=== PATIENT | male | born 1970 | race African-American/Black ===

== ENCOUNTER 2020-08-16 16:30 | Inpatient (IN) ==
[2020-08-16] MEDS ORDERED: MORPHINE 4 MG/1 ML VIAL IV STA ×2 (17:11→19:26)
[2020-08-16] MEDS ORDERED: ALBUTEROL 2.5 MG/3 ML NEB RESP TX STA (17:11)
[2020-08-16] MEDS ORDERED: hydrALAZINE 20 MG/1 ML VIAL IV STA (17:11)
[2020-08-16 18:29] LABS: Basophils # 0.1 10*3/uL (0.0-0.2); Basophils % 0.5 % (0.0-0.8); Eosinophils % 0.1 % (0.00-10.9); Hematocrit 34.6 VOL% (42.0-52.0); Hemoglobin 11.1 GM/DL (14.0-18.0); Immature Granulocytes % 0.7 %; Immature Granulocytes Absolute 0.09 #; Lymphocytes # 2.3 10*3/uL (1.4-4.0); Lymphocytes % 16.7 % (21.2-54.2); Mean Corpuscular HGB Conc 32.1 GM/DL (32-36); Mean Corpuscular Volume 94.5 FL (87-102); Mean Platelet Volume 11.5 FL (9.6-12.0); Monocytes % 8.1 % (1.7-12.7); NRBC # 0.02 10*3/uL; Neutrophils % 73.9 % (38.7-73.9); Platelet Count 251 T/CUMM (130-400); Red Blood Count 3.66 MC/CUMM (3.8-5.5); Red Cell Distribution Width 16.1 % (9.3-17.3); White Blood Count 13.6 T/CUMM (4-12)
[2020-08-16 18:50] LABS: Albumin 3.7 G/DL (3.4-5.0); Bilirubin,Total 0.5 MG/DL (0.2-1.0); Calcium 8.3 MG/DL (8.5-10.1); Osmolality,Calculated 297.8 MOS/KG (273-304); Total Protein 8.3 G/DL (6.4-8.3)
[2020-08-16] MEDS ORDERED: DEXTROSE 50% 25 GM/50 ML VIAL IV PRN ×2 (19:31)
[2020-08-16] MEDS ORDERED: hydrALAZINE 20 MG/1 ML VIAL IV PRN (19:31)
[2020-08-16] MEDS ORDERED: GLUCAGON 1 MG VIAL IM PRN ×2 (19:31)
[2020-08-16] MEDS ORDERED: ACETAMINOPHEN 325 MG TABLET PO PRN (19:31)
[2020-08-16] MEDS ORDERED: BENZONATATE 100 MG CAPSULE PO SCH (21:00)
[2020-08-16] MEDS ORDERED: LEVOFLOXACIN INJ 750 MG in PREMIX 1 EACH IV ONE (22:00)
[2020-08-16] MEDS: QUEtiapine 25 MG TABLET PO SCH (22:02)
[2020-08-16] MEDS: METOPROLOL TARTRATE 100 MG TABLET PO SCH (22:03)
[2020-08-16] MEDS: guaiFENesin/DM ER 600-30 MG TABLET PO SCH (22:03)
[2020-08-16] MEDS: APIXABAN 2.5 MG TABLET PO SCH (22:04)
[2020-08-17] MEDS: INSULIN LISPRO 100 UNIT/ML SUBCUT SCH ×5 (00:11→22:51)
[2020-08-17] MEDS: ALBUTEROL/IPRATROPIUM 3 ML NEB RESP TX SCH ×4 (00:40→19:18)
[2020-08-17 05:51] LABS: Basophils # 0.1 10*3/uL (0.0-0.2); Basophils % 0.6 % (0.0-0.8); Eosinophils # 0.1 10*3/uL (0.0-0.87); Eosinophils % 0.6 % (0.00-10.9); Hemoglobin 9.3 GM/DL (14.0-18.0); Immature Granulocytes % 0.5 %; Immature Granulocytes Absolute 0.05 #; Lymphocytes # 1.4 10*3/uL (1.4-4.0); Lymphocytes % 13.7 % (21.2-54.2); Mean Corpuscular HGB Conc 32.1 GM/DL (32-36); Mean Corpuscular Volume 94.8 FL (87-102); Mean Platelet Volume 12.1 FL (9.6-12.0); Neutrophils % 76.6 % (38.7-73.9); Platelet Count 213 T/CUMM (130-400); Red Blood Count 3.06 MC/CUMM (3.8-5.5); Red Cell Distribution Width 15.9 % (9.3-17.3); White Blood Count 10.3 T/CUMM (4-12)
[2020-08-17 05:56] LABS: Calcium 8.4 MG/DL (8.5-10.1); Osmolality,Calculated 297.1 MOS/KG (273-304); Risk Ratio 3.08; Thyroid Stimulating Hormone 1.47 uIU/ml (0.358-3.74); VLDL CHOLESTEROL 22.8 MG/DL
[2020-08-17 08:26] LABS: Bacteria,Urine Occasional /HPF (Few); Bilirubin,Urine Negative (Negative); Blood, Urine Negative (Negative); Glucose,Urine (UA) 150 mg/dL (Negative); Ketones,Urine Negative (Negative); Mucus,Urine Occasional /LPF (Occasional); Nitrite,Urine Negative (Negative); Protein,Urine >=500 MG/DL; RBC,Urine 1 /HPF (0-4); Sperm,Urine Occasional /HPF (Negative); Squamous Epithelial Cell,Urine Occasional /HPF (0-10); Urine Appearance Slightly Hazy (Clear); Urine Color Yellow (Yellow); Urine Specific Gravity 1.013 (1.001-1.035); Urine Urobilinogen < 2.0 EU/DL (0.2-1.0); WBC,Urine 2 /HPF (0-6)
[2020-08-17] MEDS: amLODIPine 10 MG TABLET PO SCH (09:15)
[2020-08-17] MEDS: METOPROLOL TARTRATE 100 MG TABLET PO SCH ×2 (09:15→22:51)
[2020-08-17] MEDS: APIXABAN 2.5 MG TABLET PO SCH ×2 (09:15→22:51)
[2020-08-17] MEDS: PANTOPRAZOLE 40 MG TABLET PO SCH (09:15)
[2020-08-17] MEDS: QUEtiapine 25 MG TABLET PO SCH ×2 (09:15→22:51)
[2020-08-17] MEDS: guaiFENesin/DM ER 600-30 MG TABLET PO SCH ×2 (09:15→22:50)
[2020-08-17] MEDS: DILTIAZEM 60 MG TABLET PO SCH (09:33)
[2020-08-17 15:55] LABS: Hepatitis B Surface Ag Quant < 0.10 Index; Hepatitis B Surface Ag Result Negative (Negative); Hepatitis C Virus Ab Result Negative (Negative)
[2020-08-17] MEDS: BENZONATATE 100 MG CAPSULE PO SCH (22:51)
[2020-08-18] MEDS: ALBUTEROL/IPRATROPIUM 3 ML NEB RESP TX SCH ×4 (00:07→19:39)
[2020-08-18 07:21] LABS: Basophils % 0.4 % (0.0-0.8); Eosinophils # 0.2 10*3/uL (0.0-0.87); Eosinophils % 3.1 % (0.00-10.9); Hematocrit 28.2 VOL% (42.0-52.0); Hemoglobin 9.2 GM/DL (14.0-18.0); Immature Granulocytes % 0.3 %; Immature Granulocytes Absolute 0.02 #; Lymphocytes # 1.6 10*3/uL (1.4-4.0); Lymphocytes % 20.6 % (21.2-54.2); Mean Corpuscular HGB Conc 32.6 GM/DL (32-36); Mean Corpuscular Volume 94.6 FL (87-102); Mean Platelet Volume 11.4 FL (9.6-12.0); Monocytes % 9.2 % (1.7-12.7); Neutrophils % 66.4 % (38.7-73.9); Platelet Count 237 T/CUMM (130-400); Red Blood Count 2.98 MC/CUMM (3.8-5.5); Red Cell Distribution Width 16.1 % (9.3-17.3); White Blood Count 7.8 T/CUMM (4-12)
[2020-08-18 07:45] LABS: Calcium 8.7 MG/DL (8.5-10.1)
[2020-08-18] MEDS: INSULIN LISPRO 100 UNIT/ML SUBCUT SCH ×4 (08:34→21:35)
[2020-08-18] MEDS: PANTOPRAZOLE 40 MG TABLET PO SCH (09:34)
[2020-08-18] MEDS: QUEtiapine 25 MG TABLET PO SCH ×2 (09:34→21:29)
[2020-08-18] MEDS: BENZONATATE 100 MG CAPSULE PO SCH ×3 (09:34→21:30)
[2020-08-18] MEDS: DILTIAZEM 60 MG TABLET PO SCH (09:34)
[2020-08-18] MEDS: guaiFENesin/DM ER 600-30 MG TABLET PO SCH ×2 (09:35→21:29)
[2020-08-18] MEDS: APIXABAN 2.5 MG TABLET PO SCH ×2 (09:35→21:29)
[2020-08-18] MEDS: METOPROLOL TARTRATE 100 MG TABLET PO SCH ×2 (09:35→21:29)
[2020-08-18] MEDS: amLODIPine 10 MG TABLET PO SCH (09:35)
[2020-08-18] MEDS: LEVOFLOXACIN INJ 500 MG in PREMIX 1 EACH IV SCH (22:26)
[2020-08-19] MEDS: ALBUTEROL/IPRATROPIUM 3 ML NEB RESP TX SCH ×4 (00:53→19:29)
[2020-08-19] MEDS: INSULIN LISPRO 100 UNIT/ML SUBCUT SCH ×4 (08:12→21:13)
[2020-08-19] MEDS: amLODIPine 10 MG TABLET PO SCH (08:16)
[2020-08-19] MEDS: METOPROLOL TARTRATE 100 MG TABLET PO SCH ×2 (08:16→21:09)
[2020-08-19] MEDS: QUEtiapine 25 MG TABLET PO SCH ×2 (08:27→21:09)
[2020-08-19] MEDS: PANTOPRAZOLE 40 MG TABLET PO SCH (08:27)
[2020-08-19] MEDS: DILTIAZEM 60 MG TABLET PO SCH (08:27)
[2020-08-19] MEDS: guaiFENesin/DM ER 600-30 MG TABLET PO SCH ×2 (08:27→21:09)
[2020-08-19] MEDS: APIXABAN 2.5 MG TABLET PO SCH ×2 (08:27→21:09)
[2020-08-19] MEDS: BENZONATATE 100 MG CAPSULE PO SCH ×3 (08:27→21:09)
[2020-08-19 10:05] LABS: Basophils # 0.1 10*3/uL (0.0-0.2); Basophils % 0.5 % (0.0-0.8); Eosinophils # 0.3 10*3/uL (0.0-0.87); Hematocrit 28.9 VOL% (42.0-52.0); Hemoglobin 9.3 GM/DL (14.0-18.0); Immature Granulocytes % 0.5 %; Immature Granulocytes Absolute 0.05 #; Lymphocytes # 1.2 10*3/uL (1.4-4.0); Lymphocytes % 11.6 % (21.2-54.2); Mean Corpuscular HGB Conc 32.2 GM/DL (32-36); Mean Corpuscular Volume 94.4 FL (87-102); Mean Platelet Volume 11.7 FL (9.6-12.0); Monocytes % 4.8 % (1.7-12.7); Neutrophils % 79.6 % (38.7-73.9); Platelet Count 253 T/CUMM (130-400); Red Blood Count 3.06 MC/CUMM (3.8-5.5); Red Cell Distribution Width 15.9 % (9.3-17.3); White Blood Count 10.1 T/CUMM (4-12)
[2020-08-19 10:35] LABS: Calcium 8.7 MG/DL (8.5-10.1); Osmolality,Calculated 298.8 MOS/KG (273-304)
[2020-08-20] MEDS: ALBUTEROL/IPRATROPIUM 3 ML NEB RESP TX SCH ×4 (01:16→19:11)
[2020-08-20] MEDS: QUEtiapine 25 MG TABLET PO SCH ×2 (08:26→21:03)
[2020-08-20] MEDS: BENZONATATE 100 MG CAPSULE PO SCH ×3 (08:26→21:02)
[2020-08-20] MEDS: DILTIAZEM 60 MG TABLET PO SCH (08:27)
[2020-08-20] MEDS: guaiFENesin/DM ER 600-30 MG TABLET PO SCH ×2 (08:27→21:02)
[2020-08-20] MEDS: APIXABAN 2.5 MG TABLET PO SCH (08:27)
[2020-08-20] MEDS: amLODIPine 10 MG TABLET PO SCH (08:28)
[2020-08-20] MEDS: METOPROLOL TARTRATE 100 MG TABLET PO SCH (08:28)
[2020-08-20] MEDS: INSULIN LISPRO 100 UNIT/ML SUBCUT SCH ×4 (08:28→21:03)
[2020-08-20] MEDS: PANTOPRAZOLE 40 MG TABLET PO SCH (08:28)
[2020-08-20 10:00] LABS: Basophils # 0.1 10*3/uL (0.0-0.2); Basophils % 0.6 % (0.0-0.8); Eosinophils # 0.5 10*3/uL (0.0-0.87); Eosinophils % 6.4 % (0.00-10.9); Hematocrit 28.6 VOL% (42.0-52.0); Hemoglobin 9.2 GM/DL (14.0-18.0); Immature Granulocytes % 0.4 %; Immature Granulocytes Absolute 0.03 #; Lymphocytes # 1.5 10*3/uL (1.4-4.0); Lymphocytes % 19.4 % (21.2-54.2); Mean Corpuscular HGB Conc 32.2 GM/DL (32-36); Mean Platelet Volume 11.1 FL (9.6-12.0); Monocytes % 9.3 % (1.7-12.7); Neutrophils % 63.9 % (38.7-73.9); Platelet Count 268 T/CUMM (130-400); Red Blood Count 2.98 MC/CUMM (3.8-5.5); Red Cell Distribution Width 15.9 % (9.3-17.3); White Blood Count 7.8 T/CUMM (4-12)
[2020-08-20 10:28] LABS: Calcium 8.6 MG/DL (8.5-10.1)
[2020-08-20] MEDS: LOSARTAN 25 MG TABLET PO SCH (16:42)
[2020-08-20] MEDS: LEVOFLOXACIN INJ 500 MG in PREMIX 1 EACH IV SCH (21:03)
[2020-08-20] MEDS: ONDANSETRON 4 MG/2 ML VIAL IV PRN (23:25)
[2020-08-21] MEDS: ALBUTEROL/IPRATROPIUM 3 ML NEB RESP TX SCH ×4 (00:18→19:10)
[2020-08-21] MEDS: ONDANSETRON 4 MG/2 ML VIAL IV PRN (04:35)
[2020-08-21 05:24] LABS: ABG Base Excess -4.2 MMOL/L (-2.5-2.5); ABG HCO3 22.3 MMOL/L (20-26); ABG PCO2 46.2 MM HG (35-48); ABG PH 7.302 (7.35-7.45); ABG PO2 49.7 MM HG (80-95); ABG TCO2 23.7 MMOL/L (23-27); Allen Test Positive; Pt O2 Delivery Device BIPAP
[2020-08-21 05:25] LABS: ABG Oxygen Saturation 81.2 % (95-100)
[2020-08-21 06:03] LABS: Basophils % 0.2 % (0.0-0.8); Hematocrit 29.8 VOL% (42.0-52.0); Hemoglobin 9.5 GM/DL (14.0-18.0); Immature Granulocytes % 1.1 %; Immature Granulocytes Absolute 0.12 #; Lymphocytes # 1.8 10*3/uL (1.4-4.0); Lymphocytes % 15.7 % (21.2-54.2); Mean Corpuscular HGB Conc 31.9 GM/DL (32-36); Mean Corpuscular Volume 97.1 FL (87-102); Mean Platelet Volume 11.5 FL (9.6-12.0); Monocytes % 11.2 % (1.7-12.7); NRBC # 0.02 10*3/uL; Neutrophils % 71.8 % (38.7-73.9); Platelet Count 237 T/CUMM (130-400); Red Blood Count 3.07 MC/CUMM (3.8-5.5); Red Cell Distribution Width 16.2 % (9.3-17.3)
[2020-08-21 06:04] LABS: White Blood Count 11.4 T/CUMM (4-12)
[2020-08-21 06:21] LABS: Calcium 7.6 MG/DL (8.5-10.1); Osmolality,Calculated 298.7 MOS/KG (273-304)
[2020-08-21] MEDS: INSULIN LISPRO 100 UNIT/ML SUBCUT SCH ×4 (08:31→21:14)
[2020-08-21] MEDS: LOSARTAN 25 MG TABLET PO SCH (09:02)
[2020-08-21] MEDS: QUEtiapine 25 MG TABLET PO SCH ×2 (09:02→21:15)
[2020-08-21] MEDS: guaiFENesin/DM ER 600-30 MG TABLET PO SCH ×2 (09:02→21:14)
[2020-08-21] MEDS: BENZONATATE 100 MG CAPSULE PO SCH ×3 (09:02→21:14)
[2020-08-21] MEDS: amLODIPine 10 MG TABLET PO SCH (09:02)
[2020-08-21] MEDS: PANTOPRAZOLE 40 MG TABLET PO SCH (09:03)
[2020-08-22] MEDS: ALBUTEROL/IPRATROPIUM 3 ML NEB RESP TX SCH ×4 (00:07→19:20)
[2020-08-22 05:44] LABS: Calcium 8.7 MG/DL (8.5-10.1); Osmolality,Calculated 292.8 MOS/KG (273-304)
[2020-08-22] MEDS: INSULIN LISPRO 100 UNIT/ML SUBCUT SCH ×4 (08:26→20:39)
[2020-08-22] MEDS: BENZONATATE 100 MG CAPSULE PO SCH ×3 (09:29→20:38)
[2020-08-22] MEDS: amLODIPine 10 MG TABLET PO SCH (09:30)
[2020-08-22] MEDS: LOSARTAN 25 MG TABLET PO SCH (09:30)
[2020-08-22] MEDS: PANTOPRAZOLE 40 MG TABLET PO SCH (09:30)
[2020-08-22] MEDS: guaiFENesin/DM ER 600-30 MG TABLET PO SCH ×2 (09:30→20:39)
[2020-08-22] MEDS: QUEtiapine 25 MG TABLET PO SCH ×2 (09:30→20:38)
[2020-08-22] MEDS: LEVOFLOXACIN INJ 500 MG in PREMIX 1 EACH IV SCH (20:38)
[2020-08-23] MEDS: ALBUTEROL/IPRATROPIUM 3 ML NEB RESP TX SCH ×4 (01:33→19:19)
[2020-08-23 05:44] LABS: Basophils % 0.3 % (0.0-0.8); Eosinophils # 0.2 10*3/uL (0.0-0.87); Hematocrit 29.9 VOL% (42.0-52.0); Hemoglobin 9.2 GM/DL (14.0-18.0); Immature Granulocytes Absolute 0.09 #; Lymphocytes # 1.7 10*3/uL (1.4-4.0); Lymphocytes % 19.2 % (21.2-54.2); Mean Corpuscular HGB Conc 30.8 GM/DL (32-36); Mean Corpuscular Volume 97.1 FL (87-102); Monocytes % 13.3 % (1.7-12.7); Neutrophils % 64.2 % (38.7-73.9); Platelet Count 272 T/CUMM (130-400); Red Blood Count 3.08 MC/CUMM (3.8-5.5); Red Cell Distribution Width 15.7 % (9.3-17.3); White Blood Count 8.7 T/CUMM (4-12)
[2020-08-23 06:03] LABS: Calcium 8.6 MG/DL (8.5-10.1); Osmolality,Calculated 298.1 MOS/KG (273-304)
[2020-08-23] MEDS: INSULIN LISPRO 100 UNIT/ML SUBCUT SCH ×4 (07:58→20:57)
[2020-08-23] MEDS: QUEtiapine 25 MG TABLET PO SCH ×2 (08:38→20:54)
[2020-08-23] MEDS: LOSARTAN 25 MG TABLET PO SCH (08:38)
[2020-08-23] MEDS: amLODIPine 10 MG TABLET PO SCH (08:38)
[2020-08-23] MEDS: PANTOPRAZOLE 40 MG TABLET PO SCH (08:38)
[2020-08-23] MEDS: guaiFENesin/DM ER 600-30 MG TABLET PO SCH ×2 (08:38→20:54)
[2020-08-23] MEDS: BENZONATATE 100 MG CAPSULE PO SCH ×3 (08:39→20:54)
[2020-08-23] MEDS ORDERED: DIAZEPAM 5 MG TABLET PO ONE (08:45)
[2020-08-23] MEDS ORDERED: diphenhydrAMINE CAP 25 MG CAPSULE PO ONE (08:45)
[2020-08-23] MEDS ORDERED: VANCOMYCIN 500 MG VIAL IRRIG ONE (11:55)
[2020-08-23] MEDS ORDERED: VANCOMYCIN INJ 500 MG in SODIUM CHLORIDE 0.9% 100 ML IV ONE (11:55)
[2020-08-23] MEDS ORDERED: LIDOCAINE 1% 20 ML VIAL ONE ×2 (13:51→14:00)
[2020-08-23] MEDS ORDERED: ceFAZolin 1,000 MG VIAL ONE (13:51)
[2020-08-23] MEDS ORDERED: VANCOMYCIN 500 MG VIAL ONE (13:55)
[2020-08-23] MEDS ORDERED: MIDAZOLAM 2 MG/2 ML VIAL ONE (14:01)
[2020-08-23] MEDS ORDERED: fentaNYL 100 MCG/2 ML VIAL ONE (14:01)
[2020-08-23] MEDS ORDERED: TISSUE ADHESIVE 1 EACH APPLICATOR TOP ONE (15:20)
[2020-08-23] MEDS ORDERED: ZALEPLON 5 MG CAPSULE PO PRN (15:32)
[2020-08-23] MEDS ORDERED: GLUCAGON 1 MG VIAL IM PRN (15:32)
[2020-08-23] MEDS ORDERED: DEXTROSE 50% 25 GM/50 ML VIAL IV PRN (15:32)
[2020-08-24 06:28] LABS: Basophils # 0.1 10*3/uL (0.0-0.2); Basophils % 0.5 % (0.0-0.8); Eosinophils # 0.2 10*3/uL (0.0-0.87); Eosinophils % 2.3 % (0.00-10.9); Hematocrit 29.1 VOL% (42.0-52.0); Hemoglobin 9.4 GM/DL (14.0-18.0); Immature Granulocytes % 0.8 %; Immature Granulocytes Absolute 0.07 #; Lymphocytes # 1.6 10*3/uL (1.4-4.0); Lymphocytes % 16.7 % (21.2-54.2); Mean Corpuscular HGB Conc 32.3 GM/DL (32-36); Mean Corpuscular Volume 94.5 FL (87-102); Mean Platelet Volume 10.5 FL (9.6-12.0); Monocytes % 11.7 % (1.7-12.7); Platelet Count 284 T/CUMM (130-400); Red Blood Count 3.08 MC/CUMM (3.8-5.5); Red Cell Distribution Width 15.5 % (9.3-17.3); White Blood Count 9.3 T/CUMM (4-12)
[2020-08-24 06:42] LABS: Calcium 9.1 MG/DL (8.5-10.1); Osmolality,Calculated 298.1 MOS/KG (273-304)
[2020-08-24 07:04] LABS: % Iron Saturation 12.7 % (18-50); Ferritin 2911.1 ng/ml (26-388)
[2020-08-24] MEDS: ALBUTEROL/IPRATROPIUM 3 ML NEB RESP TX SCH ×4 (07:05→18:52)
[2020-08-24] MEDS: INSULIN LISPRO 100 UNIT/ML SUBCUT SCH ×4 (08:44→22:25)
[2020-08-24] MEDS: LOSARTAN 25 MG TABLET PO SCH (08:48)
[2020-08-24] MEDS: APIXABAN 2.5 MG TABLET PO SCH ×2 (08:48→22:25)
[2020-08-24] MEDS: QUEtiapine 25 MG TABLET PO SCH ×2 (08:49→22:24)
[2020-08-24] MEDS: guaiFENesin/DM ER 600-30 MG TABLET PO SCH ×2 (08:49→22:24)
[2020-08-24] MEDS: BENZONATATE 100 MG CAPSULE PO SCH ×3 (08:49→22:25)
[2020-08-24] MEDS: PANTOPRAZOLE 40 MG TABLET PO SCH (08:49)
[2020-08-24] MEDS: amLODIPine 10 MG TABLET PO SCH (08:49)
[2020-08-24] MEDS: METOPROLOL TARTRATE 100 MG TABLET PO SCH ×2 (08:49→22:25)
[2020-08-24 09:46] LABS: Folate 14.8 NG/ML (5.4-24.0)
[2020-08-25] MEDS: ALBUTEROL/IPRATROPIUM 3 ML NEB RESP TX SCH ×4 (01:57→19:18)
[2020-08-25] MEDS: INSULIN LISPRO 100 UNIT/ML SUBCUT SCH ×4 (08:06→21:33)
[2020-08-25] MEDS: guaiFENesin/DM ER 600-30 MG TABLET PO SCH ×2 (08:41→21:33)
[2020-08-25] MEDS: METOPROLOL TARTRATE 100 MG TABLET PO SCH ×2 (08:41→21:33)
[2020-08-25] MEDS: amLODIPine 10 MG TABLET PO SCH (08:41)
[2020-08-25] MEDS: APIXABAN 2.5 MG TABLET PO SCH ×2 (08:41→21:33)
[2020-08-25] MEDS: QUEtiapine 25 MG TABLET PO SCH ×2 (08:41→21:33)
[2020-08-25] MEDS: PANTOPRAZOLE 40 MG TABLET PO SCH (08:41)
[2020-08-25] MEDS: LOSARTAN 50 MG TABLET PO SCH (08:41)
[2020-08-25] MEDS: BENZONATATE 100 MG CAPSULE PO SCH ×3 (08:41→21:33)
[2020-08-25] MEDS ORDERED: POLYETHYLENE GLYCOL POWDER 17 GM PACK PO PRN (11:06)
[2020-08-25] MEDS ORDERED: BISACODYL 5 MG TABLET PO ONE (11:06)
[2020-08-26] MEDS: ALBUTEROL/IPRATROPIUM 3 ML NEB RESP TX SCH ×5 (00:29→19:50)
[2020-08-26] MEDS: LOSARTAN 50 MG TABLET PO SCH (10:26)
[2020-08-26] MEDS: INSULIN LISPRO 100 UNIT/ML SUBCUT SCH ×4 (10:26→20:50)
[2020-08-26] MEDS: QUEtiapine 25 MG TABLET PO SCH ×2 (10:27→20:50)
[2020-08-26] MEDS: PANTOPRAZOLE 40 MG TABLET PO SCH (10:27)
[2020-08-26] MEDS: APIXABAN 2.5 MG TABLET PO SCH ×2 (10:27→20:50)
[2020-08-26] MEDS: amLODIPine 10 MG TABLET PO SCH (10:27)
[2020-08-26] MEDS: BENZONATATE 100 MG CAPSULE PO SCH ×3 (10:27→20:50)
[2020-08-26] MEDS: METOPROLOL TARTRATE 100 MG TABLET PO SCH ×2 (10:27→20:50)
[2020-08-26] MEDS: guaiFENesin/DM ER 600-30 MG TABLET PO SCH ×2 (10:27→20:50)
[2020-08-26] MEDS ORDERED: ALUMINUM/MAGNES/SIMETH MAX STR 30 ML UDCUP PO PRN (21:16)
[2020-08-27] MEDS: ALBUTEROL/IPRATROPIUM 3 ML NEB RESP TX SCH ×5 (01:35→20:17)
[2020-08-27 05:54] LABS: Basophils # 0.1 10*3/uL (0.0-0.2); Basophils % 0.7 % (0.0-0.8); Eosinophils # 0.4 10*3/uL (0.0-0.87); Eosinophils % 5.9 % (0.00-10.9); Hematocrit 29.8 VOL% (42.0-52.0); Hemoglobin 9.3 GM/DL (14.0-18.0); Immature Granulocytes % 0.6 %; Immature Granulocytes Absolute 0.04 #; Lymphocytes # 1.8 10*3/uL (1.4-4.0); Lymphocytes % 26.2 % (21.2-54.2); Mean Corpuscular HGB Conc 31.2 GM/DL (32-36); Mean Corpuscular Volume 95.2 FL (87-102); Mean Platelet Volume 10.8 FL (9.6-12.0); Monocytes % 15.9 % (1.7-12.7); Neutrophils % 50.7 % (38.7-73.9); Platelet Count 262 T/CUMM (130-400); Red Blood Count 3.13 MC/CUMM (3.8-5.5); Red Cell Distribution Width 15.1 % (9.3-17.3); White Blood Count 6.9 T/CUMM (4-12)
[2020-08-27 06:51] LABS: Albumin 2.7 G/DL (3.4-5.0); Calcium 8.3 MG/DL (8.5-10.1)
[2020-08-27 06:54] LABS: Eosinophils 2 % (0-10); Hypochromasia Slight; Lymphocytes 28 % (20-55); Platelet Estimate Normal; Segmented Neutrophils 57 % (50-85); Total Cells Counted 100
[2020-08-27] MEDS: QUEtiapine 25 MG TABLET PO SCH ×2 (09:42→20:54)
[2020-08-27] MEDS: LOSARTAN 50 MG TABLET PO SCH (09:43)
[2020-08-27] MEDS: PANTOPRAZOLE 40 MG TABLET PO SCH (09:43)
[2020-08-27] MEDS: amLODIPine 10 MG TABLET PO SCH (09:43)
[2020-08-27] MEDS: APIXABAN 2.5 MG TABLET PO SCH ×2 (09:43→20:54)
[2020-08-27] MEDS: BENZONATATE 100 MG CAPSULE PO SCH ×3 (09:43→20:54)
[2020-08-27] MEDS: METOPROLOL TARTRATE 100 MG TABLET PO SCH ×2 (09:43→20:54)
[2020-08-27] MEDS: guaiFENesin/DM ER 600-30 MG TABLET PO SCH ×2 (09:44→20:54)
[2020-08-27] MEDS: INSULIN LISPRO 100 UNIT/ML SUBCUT SCH ×4 (09:44→20:51)
[2020-08-28] MEDS: ALBUTEROL/IPRATROPIUM 3 ML NEB RESP TX SCH ×4 (01:00→19:21)
[2020-08-28] MEDS: INSULIN LISPRO 100 UNIT/ML SUBCUT SCH ×4 (08:06→21:42)
[2020-08-28] MEDS: PANTOPRAZOLE 40 MG TABLET PO SCH (08:54)
[2020-08-28] MEDS: guaiFENesin/DM ER 600-30 MG TABLET PO SCH ×2 (08:54→21:42)
[2020-08-28] MEDS: APIXABAN 2.5 MG TABLET PO SCH ×2 (08:54→21:41)
[2020-08-28] MEDS: amLODIPine 10 MG TABLET PO SCH (08:54)
[2020-08-28] MEDS: QUEtiapine 25 MG TABLET PO SCH ×2 (08:54→21:41)
[2020-08-28] MEDS: METOPROLOL TARTRATE 100 MG TABLET PO SCH ×2 (08:54→21:41)
[2020-08-28] MEDS: BENZONATATE 100 MG CAPSULE PO SCH ×3 (08:54→21:41)
[2020-08-28] MEDS: LOSARTAN 50 MG TABLET PO SCH (08:54)
[2020-08-29] MEDS: ALBUTEROL/IPRATROPIUM 3 ML NEB RESP TX SCH ×4 (01:16→18:39)
[2020-08-29] MEDS: INSULIN LISPRO 100 UNIT/ML SUBCUT SCH ×4 (07:34→21:04)
[2020-08-29] MEDS: QUEtiapine 25 MG TABLET PO SCH ×2 (11:33→21:04)
[2020-08-29] MEDS: amLODIPine 10 MG TABLET PO SCH (11:33)
[2020-08-29] MEDS: METOPROLOL TARTRATE 100 MG TABLET PO SCH ×2 (11:33→21:04)
[2020-08-29] MEDS: PANTOPRAZOLE 40 MG TABLET PO SCH (11:33)
[2020-08-29] MEDS: LOSARTAN 50 MG TABLET PO SCH (11:33)
[2020-08-29] MEDS: guaiFENesin/DM ER 600-30 MG TABLET PO SCH ×2 (11:33→21:05)
[2020-08-29] MEDS: APIXABAN 2.5 MG TABLET PO SCH ×2 (11:33→21:05)
[2020-08-29] MEDS: BENZONATATE 100 MG CAPSULE PO SCH ×3 (11:34→21:04)
[2020-08-29] MEDS ORDERED: BISACODYL 5 MG TABLET PO ONE (11:57)
[2020-08-29] MEDS: POLYETHYLENE GLYCOL POWDER 17 GM PACK PO SCH ×2 (12:22→21:06)
[2020-08-30] MEDS: ALBUTEROL/IPRATROPIUM 3 ML NEB RESP TX SCH ×3 (00:27→13:32)
[2020-08-30 07:29] LABS: Basophils # 0.1 10*3/uL (0.0-0.2); Basophils % 0.9 % (0.0-0.8); Eosinophils # 0.5 10*3/uL (0.0-0.87); Eosinophils % 6.3 % (0.00-10.9); Hematocrit 30.6 VOL% (42.0-52.0); Hemoglobin 9.5 GM/DL (14.0-18.0); Immature Granulocytes % 0.2 %; Immature Granulocytes Absolute 0.02 #; Lymphocytes # 2.2 10*3/uL (1.4-4.0); Lymphocytes % 26.7 % (21.2-54.2); Mean Corpuscular Volume 93.3 FL (87-102); Mean Platelet Volume 10.7 FL (9.6-12.0); Monocytes % 11.2 % (1.7-12.7); Neutrophils % 54.7 % (38.7-73.9); Platelet Count 292 T/CUMM (130-400); Red Blood Count 3.28 MC/CUMM (3.8-5.5); Red Cell Distribution Width 15.1 % (9.3-17.3); White Blood Count 8.1 T/CUMM (4-12)
[2020-08-30 07:55] LABS: Albumin 2.9 G/DL (3.4-5.0); Calcium 8.6 MG/DL (8.5-10.1); Osmolality,Calculated 294.7 MOS/KG (273-304)
[2020-08-30] MEDS: INSULIN LISPRO 100 UNIT/ML SUBCUT SCH ×3 (08:36→16:19)
[2020-08-30] MEDS: POLYETHYLENE GLYCOL POWDER 17 GM PACK PO SCH (09:30)
[2020-08-30] MEDS: METOPROLOL TARTRATE 100 MG TABLET PO SCH (09:31)
[2020-08-30] MEDS: APIXABAN 2.5 MG TABLET PO SCH (09:31)
[2020-08-30] MEDS: BENZONATATE 100 MG CAPSULE PO SCH ×2 (09:31→16:18)
[2020-08-30] MEDS: LOSARTAN 50 MG TABLET PO SCH (09:32)
[2020-08-30] MEDS: amLODIPine 10 MG TABLET PO SCH (09:32)
[2020-08-30] MEDS: QUEtiapine 25 MG TABLET PO SCH (09:32)
[2020-08-30] MEDS: PANTOPRAZOLE 40 MG TABLET PO SCH (09:32)
[2020-08-30] MEDS: guaiFENesin/DM ER 600-30 MG TABLET PO SCH (09:34)
[2020-08-30 16:42] VITALS: BP 144/77
== END 2020-08-30 18:09 | DRG 242 ==
LOC: N.ED 16:30 → SUATTDRO 19:31 → N.EDINP 19:31 → N.TELEN 08-17 12:38
PROVIDERS: ADMIT Family Medicine; ATTEND Internal Medicine